=== PATIENT | male | born 1995 | race African-American/Black ===

== ENCOUNTER 2018-06-22 03:42 | Emergency (ER) | payer SELFPAY ==
[~2018-06-22] VITALS: Ht 177.8 cm; Wt 97.3 kg
[~2018-06-22 03:42] MED LIST: AMOXICILLIN500 MG PO; CLARITIN-D 21 TABLET PO; HYDROCHLOROTH12.5 M3 PO; LISINOPRIL-HCT1 EAC3 PO; LISINOPRIL10 MG PO; LISINOPRIL20 MG PO; MEDROL DOSEPAK4 MG PO; NAPROSYN500 MG PO; NOHOMEMEDS; NORCO 5/3251 TABLET PO; PERCOCET 5/31 TABLET PO; STOOL SOFTENER100 MG PO; TRAMADOL HCL50 MG PO; VISTARIL25 MG PO
[2018-06-22] MEDS ORDERED: MOTRIN600 MG PO (04:40)
[2018-06-22 05:08] VITALS: BP 178/121
== END 2018-06-22 05:09 | disposition home or self-care (01) ==
LOC: EME 03:42
PROC: 2W3CX1Z Immobilization of Right Lower Arm using Splint (ICD-10-PCS; principal; 2018-06-22)
DX: S62.306A Unspecified fracture of fifth metacarpal bone, right hand, initial encounter for closed fracture (principal); S62.304A Unspecified fracture of fourth metacarpal bone, right hand, initial encounter for closed fracture; W19.XXXA Unspecified fall, initial encounter; Y92.009 Unspecified place in unspecified non-institutional (private) residence as the place of occurrence of the external cause; I10 Essential (primary) hypertension
CPT/HCPCS: 73130; 99281; 99283